=== PATIENT | male | born 1960 | race African-American/Black ===

== ENCOUNTER 2018-07-03 13:45 | Inpatient (IN) ==
[2018-07-03 15:26] LABS: Baso % (Auto) 0.8 % (0.0-2.0); Eos # (Auto) 0.1 th/mm3 (0.0-0.4); Eos % (Auto) 2.5 % (0.0-4.0); Hematocrit 48.1 % (39.0-51.0); Hemoglobin 15.8 gm/dL (13.0-17.0); Lymph # (Auto) 1.4 th/mm3 (1.0-4.8); Lymph % (Auto) 30.8 % (9.0-44.0); Mean Corpuscular HGB Conc 32.9 % (32.0-36.0); Mean Corpuscular Hemoglobin 28.9 pg (27.0-34.0); Mean Corpuscular Volume 87.6 fL (80.0-100.0); Mean Platelet Volume 8.6 fL (7.0-11.0); Mono # (Auto) 0.4 th/mm3 (0.0-0.9); Mono % (Auto) 9.5 % (0.0-8.0); Neut # (Auto) 2.6 th/mm3 (1.8-7.7); Neut % (Auto) 56.4 % (16.0-70.0); Platelet Count 188 th/mm3 (150-450); Red Blood Count 5.49 mil/mm3 (4.50-5.90); Red Cell Distribution Width 13.9 % (11.6-17.2); White Blood Count 4.6 th/mm3 (4.0-11.0)
--- NOTE | 2018-07-03 15:36 | XR ---
EXAM DATE: 07/03/2018 3:33 PM EDT AGE/SEX: 57 years / Male INDICATIONS: High blood pressure. CLINICAL DATA: This is the patient's initial encounter. Patient reports that signs and symptoms have been present for 1 month and indicates a pain score of 1/10. MEDICAL/SURGICAL HISTORY: Hypertension. Congestive heart failure. None. COMPARISON: No prior exams available for comparison. FINDINGS: The cardiac silhouette is enlarged in transverse diameter. The lungs are free of acute parenchymal op acity. No effusions are identified. The aortic knob is prominent with tortuosity of the descending th oracic aorta. CONCLUSION: Cardiomegaly. No acute pulmonary disease. Electronically signed by: Les Giraldo MD 07/03/2018 3:35 PM EDT
[2018-07-03 15:59] LABS: Calcium 9.3 mg/dL (8.5-10.1); Carbon Dioxide 28.1 meq/L (21.0-32.0); Potassium 4.1 meq/L (3.5-5.1)
--- NOTE | 2018-07-03 17:01 | ED ---
HPI General Chief complaint: Medical Clearance Stated complaint: BP high Time Seen by Provider: 07/03/18 14:51 Source: patient Mode of arrival: ambulatory Limitations: no limitations History of Present Illness HPI narrative: Patient is a 57-year-old male with hypertension diabetes seizure disorder and diverticulosis that was sent in by his primary Dr. Gilmore for markedly elevated blood pressure they did give him a prescription for clonidine 0.1 mg p.o. but that was prescribed today. The patient will arrival had a blood pressure of 220/111. However, the patient states he is completely asymptomatic has no chest pain no dizziness no nausea vomiting no headache Related Data Home Medications Medication Instructions Recorded Confirmed clonidine HCl 0.1 mg PO BID 07/03/18 07/03/18 dabigatran etexilate [Pradaxa] 75 mg PO DAILY 07/03/18 07/03/18 hydrochlorothiazide 25 mg PO QAM 07/03/18 07/03/18 metformin 1,000 mg PO BID 07/03/18 07/03/18 metoprolol succinate 100 mg PO BID 07/03/18 07/03/18 sitagliptin [Januvia] 100 mg PO DAILY 07/03/18 07/03/18 Allergies Allergy/AdvReac Type Severity Reaction Status Date / Time No Known Allergies Allergy Verified 07/03/18 15:39 Review of Systems ROS: all other systems reviewed are negative Constitutional Reports system reviewed and no additional complaints, except as docu Cardiovascular Reports system reviewed and no additional complaints, except as docu Respiratory Reports system reviewed and no additional complaints, except as docu Neurologic Reports as per HPI, Denies vertigo, Denies dizziness and Denies headache(s) [facility] Medical History Medical History CVA (cerebral vascular accident) (Acute) Diabetes (Acute) HTN (hypertension) (Acute) High cholesterol (Acute) Surgical History Surgical History H/O hernia repair (Acute) H/O knee surgery (Acute) Social History Social History Substance History: Active Abuse Second Hand Smoke Exposure: No Smoking Status: Never smoker How Often Do You Have a Drink Containing Alcohol: Monthly or less Recent Travel in [facility] within the Last 8 Weeks: No Recent Out of Country Travel within the Last 8 Weeks: No Substance Abuse Detail Marijuana: Substance Use Status: Active Route Used Substance Abuse: Inhalation Immunization History Tetanus Immunization: Unsure Hx Influenza Vaccine This Season: No Exam Narrative Exam Narrative: GENERAL: Alert and oriented in no distress. SKIN: Focused skin assessment warm/dry. HEAD: Atraumatic. Normocephalic. EYES: Pupils equal and round. No scleral icterus. No injection or drainage. ENT: No nasal bleeding or discharge. Mucous membranes pink and moist. NECK: Trachea midline. No JVD. CARDIOVASCULAR: Regular rate and rhythm. No murmur appreciated. RESPIRATORY: No accessory muscle use. Clear to auscultation. Breath sounds equal bilaterally. GASTROINTESTINAL: Abdomen soft, non-tender, nondistended. Hepatic and splenic margins not palpable. MUSCULOSKELETAL: No obvious deformities. No clubbing. No cyanosis. No edema. NEUROLOGICAL: Awake and alert. No obvious cranial nerve deficits. Motor grossly within normal limits. Normal speech. PSYCHIATRIC: Appropriate mood and affect; insight and judgment normal. Course Reevaluation(s) Reevaluation #1: Patient still elevated blood pressure of 217/122 after he received enalapril. Will lead give clonidine 0.2 mg p.o. and reassess. Still asymptomatic Time: 15:30 Reevaluation #2: Minimal improvement of his blood pressure to 203/113 and on repeat was 218/[address] the patient on Cardene drip. Time: 16:45 Reevaluation #3: Blood pressure after he was placed on Cardene drip is 160/96. Time: 18:21 Initial Documented Vital Signs Temperature 98.3 F 07/03/18 14:30 Pulse Rate 77 07/03/18 14:30 Respiratory Rate 16 07/03/18 14:30 Blood Pressure 220/111 H 07/03/18 14:30 Pulse Oximetry 100 07/03/18 14:30 Last Documented Vital Signs Temperature 98.3 F 07/03/18 14:30 Pulse Rate 77 07/03/18 18:00 Respiratory Rate 15 07/03/18 18:00 Blood Pressure 168/96 H 07/03/18 18:00 Pulse Oximetry 98 07/03/18 16:00 Critical Care Time Critical Care Time: Yes Total Critical Care Time: 30 Attestation: Aggregate critical care time was 30 minutes. Time to perform other separately billable procedures was not included in the critical care time. My time did not include minutes spent treating any other patients simultaneously or on activities that did not directly contribute to the patient's treatment. The services I provided to this patient were to treat and/or prevent clinically significant deterioration that could result in: Loss of current lifestyle permanent disability and/or I provided critical care services requiring my management, as noted below: Chart data review, documentation time, medication orders and management, vital sign assessments/reviewing monitor data, ordering and reviewing lab tests, ordering and interpreting/reviewing x-rays and diagnostic studies, care of the patient and discussion of the patient with the admitting physicians. Medical Decision Making MDM Narrative Medical decision making narrative: Patient with persistent hypertension not responding to p.o. clonidine or IV Vasotec. He was placed on a Cardene drip with a repeat blood pressure after being on the drip for about 30 minutes of 168 /96 at 1800 hrs. Patient is otherwise asymptomatic kidney function seems intact. He will be admitted for further monitoring of his vital signs. Medical Screen Exam Complete: Yes Emergency Medical Condition: Yes Medical Records Medical records reviewed: Yes I reviewed the patient's medical records. Lab Data Lab results reviewed: Yes I reviewed the patient's lab results. Result diagrams: 07/03/18 15:10 07/03/18 15:10 Lab Results 07/03/18 07/03/18 07/03/18 Range/Units 15:10 15:10 15:15 WBC 4.6 (4.0-11.0) th/mm3 RBC 5.49 (4.50-5.90) mil/mm3 Hgb 15.8 (13.0-17.0) gm/dL Hct 48.1 (39.0-51.0) % MCV 87.6 (80.0-100.0) fL MCH 28.9 (27.0-34.0) pg MCHC 32.9 (32.0-36.0) % RDW 13.9 (11.6-17.2) % Plt Count 188 (150-450) th/mm3 MPV 8.6 (7.0-11.0) fL Neut % (Auto) 56.4 (16.0-70.0) % Lymph % (Auto) 30.8 (9.0-44.0) % [place] % (Auto) 9.5 H (0.0-8.0) % Eos % (Auto) 2.5 (0.0-4.0) % Baso % (Auto) 0.8 (0.0-2.0) % Neut # (Auto) 2.6 (1.8-7.7) th/mm3 Lymph # (Auto) 1.4 (1.0-4.8) th/mm3 [place] # (Auto) 0.4 (0.0-0.9) th/mm3 Eos # (Auto) 0.1 (0.0-0.4) th/mm3 Baso # (Auto) 0.0 (0.0-0.2) th/mm3 WBC Differential . Differential Comment Auto diff final Sodium 142 (136-145) meq/L Potassium 4.1 (3.5-5.1) meq/L Chloride 106 (98-107) meq/L Carbon Dioxide 28.1 (21.0-32.0) meq/L Anion Gap 8 (5-15) meq/L BUN 14 (7-18) mg/dL Creatinine 1.15 (0.60-1.30) mg/dL Estimated GFR 79 L (>89) mL/min POC Glucose 103 (68-110) mg/dl Random Glucose 95 (74-106) mg/dL Calcium 9.3 (8.5-10.1) mg/dL Imaging Data Radiologist's impression: Chest X-Ray 07/03/18 14:52 CONCLUSION: Cardiomegaly. No acute pulmonary disease. ECG Data Attestation: I personally reviewed and interpreted this ECG as follows: Interpretation: Sinus rhythm 78 bpm, left atrial enlargement OH interval [address]-T wave abnormalities normal axis. No STEMI Discharge Plan Discharge Disposition Patient Disposition: 30 Still Patient Discharge Condition Condition: Good Discharge Details Diagnosis: Asymptomatic hypertensive urgency Physicians Team ED Provider: Dandy Barrera Primary Care Provider: UNKNOWN, Attending Provider: Rodrigo Gregg Discharge Interventions Interventions: Vital Signs Last Done: 07/03/18 18:00 Status ED Status: Admitted Patient
[2018-07-03] MEDS: niCARdipine Inj 25 MG in Sodium Chlor 0.9% Inj 240 ML IV.CONT PRN (17:21)
[2018-07-03] MEDS ORDERED: Dextrose 50% in Water 50 ML Vial IV.PUSH PRN (18:29)
--- NOTE | 2018-07-03 22:00 | P.HPIM ---
History of Present Illness Service: [facility] . Primary Care Physician: UNKNOWN Chief Complaint: High blood pressure History of Present Illness: Mr. Acosta is a 57-year-old male with a history of CVA, diabetes mellitus, hyperlipidemia, hypertension, seizure disorder, and diverticulosis who was sent by his primary care physician Dr. Bell to the emergency room for evaluation of hypertensive urgency. He was found to have an initial blood pressure of 220/ 110 in the emergency room, was started on a Cardene drip, and admitted to [facility] service for medical management and evaluation. The patient is seen in the critical care unit with Cardene drip infusing. He denies any headaches, unilateral weakness, chest pain, palpitations shortness of breath, nausea, vomiting, diarrhea, fevers, chills. He states he was simply at the doctor for routine follow-up when they noted his elevated blood pressure and referred him to the emergency department. He reports having elevated blood pressure over the last year. He reports seeing Dr. Arias for chronic back pain which is treated with Roxicodone and "muscle relaxers" as an outpatient. I attempted to review his medications with him, but he is uncertain as to which medications he takes exactly. I have discussed with the bedside nurse and the medication reconciliation will be corrected in the morning. Inpatient Certification: I certify that the inpatient services were ordered in accordance with Medicare regulations governing the order. This includes certification that hospital inpatient services are reasonable and necessary and in the case of services not specified as inpatient-only under 42 CFR 419.22(n), that they are appropriately provided as inpatient services in accordance to with the 2-midnight benchmark under 43 CFR 412.3(e) Estimated Total Length of Stay (Days): 2 Plans for Post Hospital Care: Not yet determined Review of Systems All other systems reviewed negative except as [facility] - History History Provided By: Patient, Medical Record - Medical History Medical History: Medical History (Last Updated 07/04/18 @ 00:34 by ADRIAN Garcia) CVA (cerebral vascular accident) Diabetes HTN (hypertension) - Surgical History Surgical History: Surgical History (Last Updated 07/04/18 @ 00:34 by ADRIAN Garcia) H/O hernia repair H/O knee surgery History of skin graft - Family History Family History: Family History (Last Updated 07/04/18 @ 00:36 by ADRIAN Garcia) Mother Breast cancer Brother CVA (cerebral vascular accident) - Tobacco History Second Hand Smoke Exposure: No Tobacco Use In Past 30 Days: No Smoking Status: Never smoker - Alcohol History How Often Do You Have a Drink Containing Alcohol: Monthly or less - Substance Use History Substance History: Active Abuse - Substance Use Type Marijuana Status: Active Route Used: Inhalation - Travel History Recent Travel in the [place] Within the Last 8 Weeks: No Recent Travel Out of the Country Within the Last 8 Weeks: No - Immunization History Tetanus Immunization: Unsure Hx Influenza Vaccine This Season: No Medications and Allergies Active Medications: Active Medications Acetaminophen (Tylenol) 650 mg PO Q4H PRN PRN Reason: Temp > 100.4 Clonidine HCl (Catapres) 0.1 mg PO BID RITO Dabigatran (Pradaxa) 75 mg PO DAILY RITO Dextrose (D50w Vial) 50 ml IV.PUSH UNSCH PRN PRN Reason: PER HYPOGLYCEMIA PROTOCOL Glucagon (Glucagon Inj) 1 mg OTHER PRN PRN PRN Reason: for Hypoglycemia Protocol Hydrochlorothiazide (Hydrodiuril) 25 mg PO DAILY RITO Nicardipine HCl 25 mg/ Sodium (Chloride) 250 mls @ 50 mls/hr IV.CONT TITRATE PRN; Protocol PRN Reason: Per Protocol Last Titration: 07/03/18 21:50 Dose: 5 mg/hr, 50 mls/hr Insulin Aspart (Novolog Insulin Correctional Sugar Inj) 0 unit SQ ACHS RITO; Protocol Metoprolol Succinate (Toprol Xl) 100 mg PO BID RITO Allergies Allergy/AdvReac Type Severity Reaction Status Date / Time No Known Allergies Allergy Verified 07/03/18 15:39 Home Medications Medication Instructions Recorded Confirmed Type clonidine HCl 0.1 mg PO BID 07/03/18 07/03/18 History dabigatran etexilate [Pradaxa] 75 mg PO DAILY 07/03/18 07/03/18 History hydrochlorothiazide 25 mg PO QAM 07/03/18 07/03/18 History metformin 1,000 mg PO BID 07/03/18 07/03/18 History metoprolol succinate 100 mg PO BID 07/03/18 07/03/18 History sitagliptin [Januvia] 100 mg PO DAILY 07/03/18 07/03/18 History Exam Vital signs: Vital Signs 07/03/18 14:30 07/03/18 14:49 07/03/18 14:52 Temperature 98.3 F Pulse Rate 77 78 80 Respiratory Rate 16 24 22 Blood Pressure 220/111 H 219/106 H 216/115 H Pulse Oximetry 100 100 100 07/03/18 15:30 07/03/18 16:00 07/03/18 17:15 Temperature Pulse Rate 76 74 73 Respiratory Rate 18 21 Blood Pressure 217/122 H 203/113 H 218/127 H Pulse Oximetry 100 98 07/03/18 17:55 07/03/18 18:00 Temperature Pulse Rate 164 H 77 Respiratory Rate 15 Blood Pressure 164/106 H 168/96 H Pulse Oximetry Intake & Output 07/03/18 07/03/18 07/04/18 06:59 18:59 06:59 Weight 90.718 kg Narrative: GENERAL: This is an overweight older male patient, in no apparent distress. SKIN: No rashes, ecchymoses or lesions. Cool and dry. HEAD: Atraumatic. Normocephalic. EYES: No scleral icterus. No injection or drainage. ENT: Nose without bleeding, purulent drainage. NECK: Trachea midline. No JVD. CARDIOVASCULAR: Regular rate and rhythm without murmurs, gallops, or rubs. RESPIRATORY: Clear to auscultation. Breath sounds equal bilaterally. No wheezes , rales, or rhonchi. GASTROINTESTINAL: Abdomen soft, non-tender, nondistended. No guarding. MUSCULOSKELETAL: Extremities without clubbing, cyanosis, or edema. No calf tenderness. NEUROLOGICAL: Awake and alert. Motor and sensory grossly within normal limits. Normal speech. . Results - Labs CBC & Chem 7: 07/03/18 15:10 07/03/18 15:10 Labs: Short CBC 07/03/18 Range/Units 15:10 WBC 4.6 (4.0-11.0) th/mm3 Hgb 15.8 (13.0-17.0) gm/dL Hct 48.1 (39.0-51.0) % Plt Count 188 (150-450) th/mm3 BMP 07/03/18 15:10 Sodium 142 Potassium 4.1 Chloride 106 Carbon Dioxide 28.1 BUN 14 Creatinine 1.15 Calcium 9.3 Cardiac Enzymes 07/03/18 Range/Units 15:10 Troponin I Less than 0.02 L (0.02-0.05) ng/mL - Imaging Impressions Chest X-Ray 07/03/18 14:52 CONCLUSION: Cardiomegaly. No acute pulmonary disease. Caprini VTE Risk Assessment Caprini VTE Risk Assessment: Moderate/High Risk (score >= 2) Caprini Risk Assessment Model: Point Value = 1 Point Value = 2 Point Value = 3 Point Value = 5 Age 41-60 Minor surgery BMI > 25 kg/m2 Swollen legs Varicose veins or History of unexplained or recurrent spontaneous Oral contraceptives or hormone replacement Sepsis (< 1 month) Serious lung disease, including pneumonia (< 1 month) Abnormal pulmonary function Acute myocardial infarction Congestive heart failure (< 1 month) History of inflammatory bowel disease Medical patient at bed rest Age 61-74 Arthroscopic surgery Major open surgery (> 45 min) Laparoscopic surgery (> 45 min) Malignancy Confined to bed (> 72 hours) Immobilizing plaster cast Central venous access Age >= 75 History of VTE Family history of VTE Factor V Leiden Prothrombin [id number] Lupus anticoagulant Anticardiolipin antibodies Elevated serum homocysteine Heparin-induced thrombocytopenia Other congenital or acquired thrombophilia Stroke (< 1 month) Elective arthroplasty Hip, pelvis, or leg fracture Acute spinal cord injury (< 1 month) Prophylaxis Regimen: Total Risk Factor Score Risk Level Prophylaxis Regimen 0-1 Low Early ambulation 2 Moderate Order ONE of the following: *Sequential Compression Device (SCD) *Heparin 5000 units SQ BID 3-4 Higher Order ONE of the following medications: *Heparin 5000 units SQ TID *Enoxaparin/Lovenox 40 mg SQ daily (WT < 150 kg, CrCl > 30 mL/min) *Enoxaparin/Lovenox 30 mg SQ daily (WT < 150 kg, CrCl > 10-29 mL/min) *Enoxaparin/Lovenox 30 mg SQ BID (WT < 150 kg, CrCl > 30 mL/min) AND/OR *Sequential Compression Device (SCD) 5 or more Highest Order ONE of the following medications: *Heparin 5000 units SQ TID (Preferred with Epidurals) *Enoxaparin/Lovenox 40 mg SQ daily (WT < 150 kg, CrCl > 30 mL/min) *Enoxaparin/Lovenox 30 mg SQ daily (WT < 150 kg, CrCl > 10-29 mL/min) *Enoxaparin/Lovenox 30 mg SQ BID (WT < 150 kg, CrCl > 30 mL/min) AND *Sequential Compression Device (SCD) Assessment and Plan - Plan Mr. Acosta is a 57-year-old male with a history of CVA, diabetes mellitus, hyperlipidemia, hypertension, seizure disorder, and diverticulosis who was sent by his primary care physician Dr. Bell to the emergency room for evaluation of hypertensive urgency. He was found to have an initial blood pressure of 220/ 110 in the emergency room, was started on a Cardene drip, and [facility] and [facility]. Hypertensive urgency - Blood pressure currently controlled on Cardene drip - Start Procardia 30 mg XL p.o. daily - wean off cardene drip - monitor trends in bp and adjust treatments accordingly Type 2 Diabetes Mellitus - Holding home meds for now -patient unsure of what he takes at home - Accu-Cheks before meals and at bedtime with low-dose NovoLog sliding scale coverage - PRN Hypoglycemia protocol - Monitor trends and blood glucose readings and adjust treatments as indicated Patient unsure of what medications he takes -will need med rec corrected/ verified DVT prophylaxis - ?Pradaxa? - will need anticoagulation verified with either patient's pharmacy or PCP - discussed with bedside RN - SCDs pending verification of home medications Discussed Condition With: Dr. Forte, bedside RN, and patient
[2018-07-03] MEDS: hydroCHLOROthiazide 25 MG Tablet PO SCH ×2 (22:35→23:44)
[2018-07-03] MEDS: Acetaminophen 325 MG Tablet PO PRN (22:35)
[2018-07-03] MEDS ORDERED: Temazepam 15 MG Capsule PO ONE (23:19)
[2018-07-04] MEDS: Insulin NovoLOG Aspart Correctional Sugar Inj SQ SCH ×5 (00:01→21:08)
[2018-07-04] MEDS: niCARdipine Inj 25 MG in Sodium Chlor 0.9% Inj 240 ML IV.CONT PRN ×2 (00:20→22:48)
[2018-07-04 06:09] LABS: Baso % (Auto) 0.4 % (0.0-2.0); Eos # (Auto) 0.2 th/mm3 (0.0-0.4); Eos % (Auto) 3.9 % (0.0-4.0); Hematocrit 46.8 % (39.0-51.0); Hemoglobin 15.7 gm/dL (13.0-17.0); Lymph # (Auto) 2.3 th/mm3 (1.0-4.8); Mean Corpuscular HGB Conc 33.5 % (32.0-36.0); Mean Corpuscular Hemoglobin 29.1 pg (27.0-34.0); Mean Corpuscular Volume 86.8 fL (80.0-100.0); Mean Platelet Volume 8.6 fL (7.0-11.0); Mono # (Auto) 0.3 th/mm3 (0.0-0.9); Mono % (Auto) 7.9 % (0.0-8.0); Neut # (Auto) 1.6 th/mm3 (1.8-7.7); Neut % (Auto) 35.8 % (16.0-70.0); Platelet Count 173 th/mm3 (150-450); Red Blood Count 5.39 mil/mm3 (4.50-5.90); Red Cell Distribution Width 13.6 % (11.6-17.2); White Blood Count 4.4 th/mm3 (4.0-11.0)
[2018-07-04 06:49] LABS: Alanine Aminotransferase 15 U/L (12-78); Albumin 3.4 g/dL (3.4-5.0); Alkaline Phosphatase 72 U/L (45-117); Anion Gap 7 meq/L (5-15); Aspartate Aminotransferase 21 U/L (15-37); Blood Urea Nitrogen 12 mg/dL (7-18); Calcium 9.1 mg/dL (8.5-10.1); Carbon Dioxide 28.7 meq/L (21.0-32.0); Chloride 104 meq/L (98-107); Glomerular Filtration Rate Greater Than 89 mL/min (>89); Glucose,Random 113 mg/dL (74-106); Potassium 3.1 meq/L (3.5-5.1); Sodium 140 meq/L (136-145); Total Protein 7.3 g/dL (6.4-8.2)
--- NOTE | 2018-07-04 08:41 | P.PNIM ---
Subjective Interval history: f/u; hypertensive urgency in no acute distress and looks comfortable. denies chest pain, sob, dizziness. off the Cardene drip since 4 this morning. d/w the RN and no other acute issues over night. Physical Exam Vital signs: Vital Signs 07/03/18 14:30 07/03/18 14:49 07/03/18 14:52 Temperature 98.3 F Pulse Rate 77 78 80 Respiratory Rate 16 24 22 Blood Pressure 220/111 H 219/106 H 216/115 H Pulse Oximetry 100 100 100 07/03/18 15:30 07/03/18 16:00 07/03/18 17:15 Temperature Pulse Rate 76 74 73 Respiratory Rate 18 21 Blood Pressure 217/122 H 203/113 H 218/127 H Pulse Oximetry 100 98 07/03/18 17:55 07/03/18 18:00 07/03/18 20:00 Temperature Pulse Rate 164 H 77 68 Respiratory Rate 15 Blood Pressure 164/106 H 168/96 H Pulse Oximetry 07/04/18 00:00 07/04/18 00:01 07/04/18 01:25 Temperature 98.1 F Pulse Rate 68 Respiratory Rate 18 19 20 Blood Pressure 158/92 H Pulse Oximetry 98 07/04/18 04:00 Temperature 98.5 F Pulse Rate 61 Respiratory Rate 11 L Blood Pressure 138/71 Pulse Oximetry 94 L Intake & Output 07/03/18 07/04/18 07/04/18 18:59 06:59 18:59 Intake Total 350 / 350 Output Total 700 / 700 Balance -350 / -350 Weight 90.718 kg 90 kg Intake: IV 250 / 250 Cardene Inj 25 MG In NS Inj 240 250 / 250 ML @ 5 MG/HR 50 mls/hr IV.CONT TITRATE PRN Rx#:[id number] Oral 100 / 100 Output: Urine 700 / 700 Other: Date of Last Bowel Movement 07/03/18 Weight On Admission 90.7 kg - Constitutional no acute distress - Routine Respiratory Exam Present: CTA bilaterally - Routine Cardiovascular Exam Present: RRR - Routine Abdominal Exam Present: soft - Routine Extremities Exam Comments: no pedal edema. - Routine Neurological Exam Present: alert, oriented X3 Results - Labs CBC & Chem 7: 07/04/18 05:12 07/04/18 05:12 Laboratory Results - last 24 hr 07/03/18 07/03/1807/03/18 15:10 15:10 15:10 WBC 4.6 RBC 5.49 Hgb 15.8 Hct 48.1 MCV 87.6 MCH 28.9 MCHC 32.9 RDW 13.9 Plt Count 188 MPV 8.6 Neut % (Auto) 56.4 Lymph % (Auto) 30.8 [place] % (Auto) 9.5 H Eos % (Auto) 2.5 Baso % (Auto) 0.8 Neut # (Auto) 2.6 Lymph # (Auto) 1.4 [place] # (Auto) 0.4 Eos # (Auto) 0.1 Baso # (Auto) 0.0 WBC Differential . Differential Comment Auto diff final Sodium 142 Potassium 4.1 Chloride 106 Carbon Dioxide 28.1 Anion Gap 8 BUN 14 Creatinine 1.15 Estimated GFR 79 L POC Glucose Random Glucose 95 Calcium 9.3 Total Bilirubin AST ALT Alkaline Phosphatase Troponin I Less than 0.02 L Total Protein Albumin Nasal Screen MRSA (PCR) 07/03/18 07/03/18 07/04/18 15:15 23:50 00:01 WBC RBC Hgb Hct MCV MCH MCHC RDW Plt Count MPV Neut % (Auto) Lymph % (Auto) [place] % (Auto) Eos % (Auto) Baso % (Auto) Neut # (Auto) Lymph # (Auto) [place] # (Auto) Eos # (Auto) Baso # (Auto) WBC Differential Differential Comment Sodium Potassium Chloride Carbon Dioxide Anion Gap BUN Creatinine Estimated GFR POC Glucose 103 114 H Random Glucose Calcium Total Bilirubin AST ALT Alkaline Phosphatase Troponin I Total Protein Albumin Nasal Screen MRSA (PCR) Not detected 07/04/18 07/04/18 07/04/18 05:12 05:12 07:31 WBC 4.4 RBC 5.39 Hgb 15.7 Hct 46.8 MCV 86.8 MCH 29.1 MCHC 33.5 RDW 13.6 Plt Count 173 MPV 8.6 Neut % (Auto) 35.8 Lymph % (Auto) 52.0 H [place] % (Auto) 7.9 Eos % (Auto) 3.9 Baso % (Auto) 0.4 Neut # (Auto) 1.6 L Lymph # (Auto) 2.3 [place] # (Auto) 0.3 Eos # (Auto) 0.2 Baso # (Auto) 0.0 WBC Differential . Differential Comment Auto diff final Sodium 140 Potassium 3.1 L D Chloride 104 Carbon Dioxide 28.7 Anion Gap 7 BUN 12 Creatinine 1.02 Estimated GFR Greater than 89 POC Glucose 118 H Random Glucose 113 H Calcium 9.1 Total Bilirubin 0.7 AST 21 ALT 15 Alkaline Phosphatase 72 Troponin I Less than 0.02 L Total Protein 7.3 Albumin 3.4 Nasal Screen MRSA (PCR) - Imaging Impressions Chest X-Ray 07/03/18 14:52 CONCLUSION: Cardiomegaly. No acute pulmonary disease. Assessment and Plan - Plan Hypertensive urgency -improved and now off the Cardene drip - Started Procardia 30 mg XL p.o. daily -continue HCTZ -hold metoprolol and clonidine for now. - monitor trends in bp and adjust treatments accordingly Type 2 Diabetes Mellitus - Holding home meds for now - - Accu-Cheks before meals and at bedtime with low-dose NovoLog sliding scale coverage - PRN Hypoglycemia protocol - Monitor trends and blood glucose readings and adjust treatments as indicated history of CVA- continue Pradaxa Hypokalemia; will replace and monitor. DVT prophylaxis; on Pradaxa transfer to floor this evening if BP stable. Discharge Planning: dc home tomorrow if BP stable.
[2018-07-04] MEDS: hydroCHLOROthiazide 25 MG Tablet PO SCH (08:50)
--- NOTE | 2018-07-04 14:38 | ECG ---
Date Performed: 07/03/2018 Time Performed: 15:09:47 PTAGE: 57 years EKG: Sinus rhythm POSSIBLE LEFT ATRIAL ENLARGEMENT NONSPECIFIC T-WAVE ABNORMALITY ANTEROSEPTAL ST ELEVATION CLINICAL C ORRELATION WILL BE USEFUL BORDERLINE ECG Since PREVIOUS TRACING , no significant change noted PREVIOUS TRACIN07/03/2018 15.09 DOCTOR: Florinda You Interpretating Date/Time 07/04/2018 14:36:31
[2018-07-04] MEDS ORDERED: Temazepam 15 MG Capsule PO ONE (21:00)
[2018-07-05] MEDS: niCARdipine Inj 25 MG in Sodium Chlor 0.9% Inj 240 ML IV.CONT PRN (01:57)
[2018-07-05 06:40] LABS: Anion Gap 12 meq/L (5-15); Blood Urea Nitrogen 13 mg/dL (7-18); Carbon Dioxide 26.2 meq/L (21.0-32.0); Chloride 103 meq/L (98-107); Glomerular Filtration Rate Greater Than 89 mL/min (>89); Glucose,Random 116 mg/dL (74-106); Sodium 141 meq/L (136-145)
[2018-07-05 06:43] LABS: Potassium 3.7 meq/L (3.5-5.1)
--- NOTE | 2018-07-05 07:57 | P.PNIM ---
Subjective Interval history: f/u; hypertensive urgency in no acute distress. with no chest pain, sob. is back on Cardene drip- started earlier this morning. d/w the RN. Physical Exam Vital signs: Vital Signs 07/04/18 08:00 07/04/18 08:02 07/04/18 08:30 Temperature 98.4 F Pulse Rate 64 68 68 Respiratory Rate 14 18 29 H Blood Pressure 160/101 H 153/83 H 164/101 H Pulse Oximetry 98 98 99 07/04/18 09:00 07/04/18 09:06 07/04/18 09:35 Temperature Pulse Rate 71 67 67 Respiratory Rate 42 H 18 16 Blood Pressure 188/106 H 137/75 Pulse Oximetry 97 97 97 07/04/18 10:00 07/04/18 10:01 07/04/18 10:14 Temperature Pulse Rate 70 75 71 Respiratory Rate 25 H 34 H 16 Blood Pressure 179/107 H 175/92 H Pulse Oximetry 99 95 98 07/04/18 11:00 07/04/18 12:00 07/04/18 13:00 Temperature 98.2 F Pulse Rate 61 66 63 Respiratory Rate 15 20 11 L Blood Pressure 160/85 H 139/70 167/101 H Pulse Oximetry 100 96 98 07/04/18 14:00 07/04/18 14:28 07/04/18 15:00 Temperature Pulse Rate 71 71 70 Respiratory Rate 18 16 15 Blood Pressure 183/95 H 178/96 H 178/89 H Pulse Oximetry 96 98 98 07/04/18 16:00 07/04/18 17:00 07/04/18 17:11 Temperature 98.4 F Pulse Rate 67 69 69 Respiratory Rate 15 25 H 19 Blood Pressure 153/67 H 194/90 H 172/74 H Pulse Oximetry 98 99 100 07/04/18 18:00 07/04/18 19:00 07/04/18 19:20 Temperature 97.8 F Pulse Rate 70 72 Respiratory Rate 22 22 Blood Pressure 170/95 H 181/104 H 191/102 H Pulse Oximetry 100 100 07/04/18 19:26 07/04/18 20:00 07/04/18 20:30 Temperature Pulse Rate 71 79 Respiratory Rate 19 16 Blood Pressure 188/110 H 184/105 H 183/90 H Pulse Oximetry 99 99 07/04/18 20:45 07/04/18 21:00 07/04/18 21:15 Temperature Pulse Rate 75 82 79 Respiratory Rate 20 33 H 24 Blood Pressure 179/90 H 184/91 H 173/86 H Pulse Oximetry 97 99 97 07/04/18 21:32 07/04/18 22:00 07/04/18 23:00 Temperature Pulse Rate 78 80 74 Respiratory Rate 20 25 H 17 Blood Pressure 172/104 H Pulse Oximetry 97 98 97 07/05/18 00:00 07/05/18 00:25 07/05/18 00:30 Temperature 97.8 F Pulse Rate 62 71 64 Respiratory Rate 18 18 Blood Pressure 177/91 H 177/91 H 153/83 H Pulse Oximetry 93 L 94 L 98 07/05/18 00:45 07/05/18 01:00 07/05/18 01:15 Temperature Pulse Rate 63 66 65 Respiratory Rate 17 18 15 Blood Pressure 142/75 H 134/69 123/64 Pulse Oximetry 99 94 L 93 L 07/05/18 01:30 07/05/18 01:45 07/05/18 02:00 Temperature Pulse Rate 66 66 66 Respiratory Rate 13 13 12 Blood Pressure 157/77 H 149/83 H 154/90 H Pulse Oximetry 97 99 97 07/05/18 02:15 07/05/18 02:30 07/05/18 02:45 Temperature Pulse Rate 66 65 64 Respiratory Rate 20 18 18 Blood Pressure 148/84 H 142/80 H 150/84 H Pulse Oximetry 96 95 95 07/05/18 03:00 07/05/18 03:15 07/05/18 03:30 Temperature Pulse Rate 64 66 65 Respiratory Rate 17 18 16 Blood Pressure 146/79 H 138/86 141/77 H Pulse Oximetry 95 95 97 07/05/18 03:45 07/05/18 04:00 07/05/18 04:15 Temperature 98 F Pulse Rate 65 71 76 Respiratory Rate 16 16 22 Blood Pressure 140/81 154/86 H 154/87 H Pulse Oximetry 96 92 L 96 07/05/18 04:30 07/05/18 04:45 Temperature Pulse Rate 67 69 Respiratory Rate 13 15 Blood Pressure 148/81 H 151/92 H Pulse Oximetry 95 93 L Intake & Output 07/04/18 07/05/18 07/05/18 18:59 06:59 18:59 Intake Total 750 / 750 1253 / 1253 Output Total 1850 / 1850 1350 / 1350 Balance -1100 / -1100 -97 / -97 Weight 88 kg Intake: IV 500 / 500 Cardene Inj 25 MG In NS Inj 240 500 / 500 ML @ 5 MG/HR 50 mls/hr IV.CONT TITRATE PRN Rx#:[id number] Oral 750 / 750 550 / 550 Other 203 / Output: Urine 1850 / 1850 1350 / 1350 Other: Date of Last Bowel Movement 07/04/18 07/05/18 # Bowel Movements 1 1 - Constitutional no acute distress - Routine Respiratory Exam Present: CTA bilaterally - Routine Cardiovascular Exam Present: RRR - Routine Abdominal Exam Present: soft - Routine Extremities Exam Comments: no pedal edema. - Routine Neurological Exam Present: alert, oriented X3 Results - Labs CBC & Chem 7: 07/04/18 05:12 07/05/18 05:44 Laboratory Results - last 24 hr 07/04/18 07/04/18 07/04/18 11:15 17:12 21:06 Sodium Potassium Chloride Carbon Dioxide Anion Gap BUN Creatinine Estimated GFR POC Glucose 149 H 162 H 139 H Random Glucose Calcium 07/05/18 07/05/18 05:44 05:50 Sodium 141 Potassium 3.7 Chloride 103 Carbon Dioxide 26.2 Anion Gap 12 BUN 13 Creatinine 0.96 Estimated GFR Greater than 89 POC Glucose 115 H Random Glucose 116 H Calcium 9.0 Assessment and Plan - Plan Hypertensive urgency -now back on Cardene drip- started earlier this morning. - will increase Procardia to 60 mg XL p.o. daily -continue HCTZ -hold metoprolol and clonidine for now. - monitor trends in bp and adjust treatments accordingly Type 2 Diabetes Mellitus - Holding home meds for now - - Accu-Cheks before meals and at bedtime with low-dose NovoLog sliding scale coverage - PRN Hypoglycemia protocol - Monitor trends and blood glucose readings and adjust treatments as indicated history of CVA- continue Pradaxa Hypokalemia; replaced. DVT prophylaxis; on Pradaxa back on Cardene drip- Discharge Planning: when BP is controlled.
[2018-07-05] MEDS: hydroCHLOROthiazide 25 MG Tablet PO SCH (09:28)
[2018-07-05] MEDS: Insulin NovoLOG Aspart Correctional Sugar Inj SQ SCH ×4 (09:28→20:19)
[2018-07-06] MEDS: Acetaminophen 325 MG Tablet PO PRN (02:34)
[2018-07-06] MEDS ORDERED: Docusate Sodium 100 MG Capsule PO PRN (08:26)
[2018-07-06] MEDS ORDERED: Zolpidem Tartrate 5 MG Tablet PO PRN (08:26)
--- NOTE | 2018-07-06 08:30 | P.PNIM ---
Subjective Interval history: f/u; uncontrolled hypertension in no acute distress. no chest pain, sob, dizziness or headache. noted that had a fever- but as per my d/w the RN, this was an inaccurate charting. Physical Exam Vital signs: Vital Signs 07/05/18 08:30 07/05/18 08:45 07/05/18 09:00 Temperature Pulse Rate 82 76 84 Respiratory Rate 17 16 22 Blood Pressure 160/81 H 164/81 H 163/82 H Pulse Oximetry 98 97 98 07/05/18 09:15 07/05/18 09:30 07/05/18 12:00 Temperature Pulse Rate 83 84 83 Respiratory Rate 19 28 H 18 Blood Pressure 167/93 H 171/89 H 174/99 H Pulse Oximetry 98 98 97 07/05/18 12:15 07/05/18 12:30 07/05/18 12:42 Temperature 99.9 F H Pulse Rate 90 89 86 Respiratory Rate 22 16 24 Blood Pressure 163/78 H 188/88 H 181/91 H Pulse Oximetry 97 98 98 07/05/18 12:45 07/05/18 13:00 07/05/18 13:15 Temperature Pulse Rate 92 H 87 86 Respiratory Rate 40 H 18 22 Blood Pressure 180/93 H 167/84 H 159/81 H Pulse Oximetry 92 L 95 97 07/05/18 13:30 07/05/18 13:43 07/05/18 13:45 Temperature Pulse Rate 86 81 87 Respiratory Rate 13 4 L 39 H Blood Pressure 197/98 H 177/89 H 170/87 H Pulse Oximetry 95 96 96 07/05/18 14:00 07/05/18 14:15 07/05/18 14:30 Temperature Pulse Rate 90 82 113 H Respiratory Rate 25 H 16 24 Blood Pressure 175/90 H 165/79 H 176/88 H Pulse Oximetry 97 97 97 07/05/18 14:45 07/05/18 15:00 07/05/18 15:15 Temperature Pulse Rate 94 H 97 H 92 H Respiratory Rate 18 20 11 L Blood Pressure 180/96 H 174/87 H 178/93 H Pulse Oximetry 97 95 97 07/05/18 15:30 07/05/18 15:41 07/05/18 15:45 Temperature Pulse Rate 93 H 95 H 91 H Respiratory Rate 17 25 H 13 Blood Pressure 190/92 H 196/87 H 180/78 H Pulse Oximetry 96 97 97 07/05/18 15:53 07/05/18 16:00 07/05/18 16:15 Temperature 101 F H Pulse Rate 87 87 83 Respiratory Rate 13 13 12 Blood Pressure 165/74 H 164/78 H 169/88 H Pulse Oximetry 97 97 97 07/05/18 16:30 07/05/18 16:45 07/05/18 17:00 Temperature Pulse Rate 84 83 84 Respiratory Rate 18 12 23 Blood Pressure 163/75 H 156/82 H 142/90 H Pulse Oximetry 95 94 L 95 07/05/18 17:15 07/05/18 17:30 07/05/18 17:45 Temperature Pulse Rate 93 H 93 H 83 Respiratory Rate 25 H 19 17 Blood Pressure 157/95 H 179/96 H 167/86 H Pulse Oximetry 98 96 98 07/05/18 18:00 07/05/18 18:15 07/05/18 18:30 Temperature Pulse Rate 81 85 86 Respiratory Rate 15 16 18 Blood Pressure 158/87 H 173/99 H 177/84 H Pulse Oximetry 96 99 98 07/05/18 18:45 07/05/18 19:00 07/05/18 19:15 Temperature Pulse Rate 85 86 84 Respiratory Rate 17 19 17 Blood Pressure 171/79 H 169/87 H 151/60 H Pulse Oximetry 98 97 93 L 07/05/18 19:30 07/05/18 19:45 07/05/18 20:00 Temperature 97.4 F L Pulse Rate 85 82 83 Respiratory Rate 19 19 26 H Blood Pressure 179/87 H 169/85 H 182/87 H Pulse Oximetry 98 96 97 07/05/18 20:16 07/05/18 20:30 07/05/18 20:45 Temperature Pulse Rate 93 H 90 85 Respiratory Rate 24 35 H 17 Blood Pressure 170/92 H 191/98 H 180/85 H Pulse Oximetry 95 98 97 07/05/18 21:00 07/05/18 21:15 07/05/18 21:30 Temperature Pulse Rate 95 H 85 86 Respiratory Rate 24 15 13 Blood Pressure 197/87 H 189/88 H 188/87 H Pulse Oximetry 98 96 96 07/05/18 21:45 07/05/18 22:00 07/05/18 22:13 Temperature Pulse Rate 84 83 85 Respiratory Rate 12 3 L 29 H Blood Pressure 185/91 H 180/75 H 174/90 H Pulse Oximetry 96 93 L 96 07/05/18 22:15 07/05/18 22:30 07/05/18 22:45 Temperature Pulse Rate 89 82 80 Respiratory Rate 23 11 L 20 Blood Pressure 172/95 H 173/97 H 166/91 H Pulse Oximetry 94 L 96 95 07/05/18 23:00 07/05/18 23:15 07/05/18 23:30 Temperature Pulse Rate 86 92 H 90 Respiratory Rate 27 H 27 H 20 Blood Pressure 162/92 H 155/104 H 199/108 H Pulse Oximetry 97 96 94 L 07/05/18 23:33 07/05/18 23:45 07/06/18 00:00 Temperature Pulse Rate 88 82 82 Respiratory Rate 30 H 17 9 L Blood Pressure 184/99 H 169/89 H 161/86 H Pulse Oximetry 97 96 93 L 07/06/18 00:16 07/06/18 00:30 07/06/18 00:45 Temperature Pulse Rate 87 82 76 Respiratory Rate 20 19 15 Blood Pressure 156/87 H 169/96 H 150/83 H Pulse Oximetry 96 95 94 L 07/06/18 01:00 07/06/18 01:15 07/06/18 01:30 Temperature Pulse Rate 80 74 75 Respiratory Rate 9 L 12 15 Blood Pressure 162/92 H 170/89 H 157/83 H Pulse Oximetry 92 L 96 94 L 07/06/18 01:45 07/06/18 02:00 07/06/18 02:15 Temperature Pulse Rate 76 75 78 Respiratory Rate 26 H 17 14 Blood Pressure 160/84 H 147/74 H 151/78 H Pulse Oximetry 95 96 95 07/06/18 02:30 07/06/18 02:33 07/06/18 02:51 Temperature Pulse Rate 82 89 85 Respiratory Rate 18 32 H 18 Blood Pressure 182/99 H 173/89 H 181/101 H Pulse Oximetry 94 L 97 96 07/06/18 02:52 07/06/18 03:00 07/06/18 03:34 Temperature Pulse Rate 86 76 87 Respiratory Rate 32 H 10 L 29 H Blood Pressure 167/96 H 154/78 H Pulse Oximetry 97 100 07/06/18 04:00 07/06/18 04:41 Temperature Pulse Rate 75 73 Respiratory Rate 11 L 11 L Blood Pressure 176/92 H Pulse Oximetry 94 L 100 Intake & Output 07/05/18 07/06/18 07/06/18 18:59 06:59 18:59 Intake Total 1150 / 1150 500 / 500 Output Total 1100 / 1100 700 / 700 Balance 50 / 50 -200 / -200 Weight 86 kg Intake: IV 250 / 250 Cardene Inj 25 MG In NS Inj 240 250 / 250 ML @ 5 MG/HR 50 mls/hr IV.CONT TITRATE PRN Rx#:[id number] Oral 900 / 900 500 / 500 Output: Urine 1100 / 1100 700 / 700 Other: Date of Last Bowel Movement 07/04/18 07/04/18 - Constitutional no acute distress - Routine Respiratory Exam Present: CTA bilaterally - Routine Cardiovascular Exam Present: RRR - Routine Abdominal Exam Present: soft - Routine Extremities Exam Comments: no pedal edema. - Routine Neurological Exam Present: alert, oriented X3 Results - Labs CBC & Chem 7: 07/04/18 05:12 07/05/18 05:44 Laboratory Results - last 24 hr 07/05/18 07/05/18 17:28 20:10 POC Glucose 149 H 119 H Assessment and Plan - Plan Hypertensive urgency -off Cardene drip since yesterday. - continue procardia and Clonidine- metoprolol on hold for now. -continue HCTZ - monitor trends in bp and adjust treatments accordingly Type 2 Diabetes Mellitus - Holding home meds for now - - Accu-Cheks before meals and at bedtime with low-dose NovoLog sliding scale coverage - PRN Hypoglycemia protocol - Monitor trends and blood glucose readings and adjust treatments as indicated history of CVA- continue Pradaxa and BP control. Hypokalemia; replaced. DVT prophylaxis; on Pradaxa of note; a temperature of 101 was recorded last night but as per my d/w the RN , this was an erroneous charting. transfer to floor. Discharge Planning: dc home tomorrow if BP is stable.
[2018-07-06] MEDS: Insulin NovoLOG Aspart Correctional Sugar Inj SQ SCH ×4 (08:55→21:12)
[2018-07-06] MEDS: hydroCHLOROthiazide 25 MG Tablet PO SCH (08:55)
[2018-07-07] MEDS: Insulin NovoLOG Aspart Correctional Sugar Inj SQ SCH (08:08)
[2018-07-07] MEDS: hydroCHLOROthiazide 25 MG Tablet PO SCH (08:09)
--- NOTE | 2018-07-07 09:07 | P.PNIM ---
Subjective Interval history: Patient says he is feeling well. Feels like going home. Denies any chest pain or shortness of breath. Physical Exam Vital signs: Vital Signs 07/06/18 09:30 07/06/18 10:00 07/06/18 10:30 Temperature Pulse Rate 87 87 78 Respiratory Rate 26 H 0 L Blood Pressure 177/94 H 180/91 H 145/81 H Pulse Oximetry 95 96 98 07/06/18 11:00 07/06/18 11:30 07/06/18 12:00 Temperature 98.3 F Pulse Rate 84 81 79 Respiratory Rate 16 16 Blood Pressure 156/85 H 171/100 H 154/90 H Pulse Oximetry 99 95 97 07/06/18 12:30 07/06/18 16:00 07/06/18 20:00 Temperature 98.4 F 98.2 F Pulse Rate 80 97 H 91 H Respiratory Rate 16 18 Blood Pressure 144/87 H 167/104 H 189/89 H Pulse Oximetry 100 96 95 07/06/18 21:43 07/07/18 00:00 07/07/18 04:00 Temperature 98.1 F 98.4 F Pulse Rate 79 85 Respiratory Rate 18 18 18 Blood Pressure 131/83 141/84 H Pulse Oximetry 98 96 07/07/18 08:00 Temperature 97.3 F L Pulse Rate 103 H Respiratory Rate 16 Blood Pressure 172/98 H Pulse Oximetry 99 Intake & Output 07/06/18 07/07/18 07/07/18 18:59 06:59 18:59 Intake Total 250 / 250 Output Total 350 / 350 Balance -100 / -100 Weight 87.5 kg Intake: Oral 250 / 250 Output: Urine 350 / 350 Other: # Voids 3 Date of Last Bowel Movement 07/04/18 Narrative: GENERAL: Patient sitting up in bed. Walking in room. Appears comfortable. Alert and oriented 4. SKIN: Warm and dry. HEAD: Normocephalic. EYES: No scleral icterus. No injection or drainage. NECK: Supple, trachea midline. No JVD. CARDIOVASCULAR: Regular rate and rhythm without murmurs, gallops, or rubs. RESPIRATORY: Breath sounds equal bilaterally. No accessory muscle use. GASTROINTESTINAL: Abdomen soft, non-tender, nondistended. MUSCULOSKELETAL: No cyanosis, or edema. BACK: Nontender without obvious deformity. No CVA tenderness. Results - Labs CBC & Chem 7: 09/07/18 05:12 07/05/18 05:44 Laboratory Results - last 24 hr 07/06/18 12:39 POC Glucose 132 H Assessment and Plan - Plan //Hypertensive urgency -off Cardene drip since yesterday. - continue procardia and Clonidine- metoprolol on hold for now. -continue HCTZ - monitor trends in bp and adjust treatments accordingly = 07/07. Blood pressure acceptable. Patient feeling well. Discharge home with adjusted medication regimen. //Type 2 Diabetes Mellitus - Holding home meds for now - - Accu-Cheks before meals and at bedtime with low-dose NovoLog sliding scale coverage - PRN Hypoglycemia protocol - Monitor trends and blood glucose readings and adjust treatments as indicated //history of CVA- continue Pradaxa and BP control. //Hypokalemia; replaced. //DVT prophylaxis; on Pradaxa Discharge Planning: Discharge home in good condition. Follow-up with primary care.
--- NOTE | 2018-07-07 09:10 | P.DS ---
Date of admission: 07/03/18 17:44 Primary care physician: UNKNOWN Brief History from admission: Mr. Acosta is a 57-year-old male with a history of CVA, diabetes mellitus, hyperlipidemia, hypertension, seizure disorder, and diverticulosis who was sent by his primary care physician Dr. Bell to the emergency room for evaluation of hypertensive urgency. He was found to have an initial blood pressure of 220/ 110 in the emergency room, was started on a Cardene drip, and admitted to [facility] service for medical management and evaluation. The patient is seen in the critical care unit with Cardene drip infusing. He denies any headaches, unilateral weakness, chest pain, palpitations shortness of breath, nausea, vomiting, diarrhea, fevers, chills. He states he was simply at the doctor for routine follow-up when they noted his elevated blood pressure and referred him to the emergency department. He reports having elevated blood pressure over the last year. He reports seeing Dr. Arias for chronic back pain which is treated with Roxicodone and "muscle relaxers" as an outpatient. I attempted to review his medications with him, but he is uncertain as to which medications he takes exactly. I have discussed with the bedside nurse and the medication reconciliation will be corrected in the morning. DS: Medications - Discharge Medications Prescriptions: clonidine HCl 0.1 mg PO BID 30 Days #60 tab dabigatran etexilate [Pradaxa] 75 mg PO DAILY 30 Days #30 cap hydrochlorothiazide 25 mg PO QAM 30 Days #30 tab metoprolol succinate 100 mg PO BID 30 Days #60 tab nifedipine 60 mg PO DAILY 30 Days #30 tab DS: Summary Hospital Course: Patient with systolic blood pressure of 220 on admission. This was managed in the ICU with Cardene drip, as well as addition of nifedipine 60 mg daily. Blood pressure improved, in the 130 systolic at time of discharge. Patient feeling well. He will need to follow with primary care doctor as outpatient. For problem based summary from most recent progress note, please see below. //Hypertensive urgency -off Cardene drip since yesterday. - continue procardia and Clonidine- metoprolol on hold for now. -continue HCTZ - monitor trends in bp and adjust treatments accordingly = 07/07. Blood pressure acceptable. Patient feeling well. Discharge home with adjusted medication regimen. //Type 2 Diabetes Mellitus - Holding home meds for now - - Accu-Cheks before meals and at bedtime with low-dose NovoLog sliding scale coverage - PRN Hypoglycemia protocol - Monitor trends and blood glucose readings and adjust treatments as indicated //history of CVA- continue Pradaxa and BP control. //Hypokalemia; replaced. //DVT prophylaxis; on Pradaxa Discharge Planning: Discharge home in good condition. Follow-up with primary care. - Time Spent with Patient Total time spent providing and/or coordinating discharge services: Less than 30 minutes - Quality: VTE Deep Vein Thrombosis/Pulmonary Embolism Present on Admission: No Exam Vital signs: Vital Signs 07/06/18 09:30 07/06/18 10:00 07/06/18 10:30 Temperature Pulse Rate 87 87 78 Respiratory Rate 26 H 0 L Blood Pressure 177/94 H 180/91 H 145/81 H Pulse Oximetry 95 96 98 07/06/18 11:00 07/06/18 11:30 07/06/18 12:00 Temperature 98.3 F Pulse Rate 84 81 79 Respiratory Rate 16 16 Blood Pressure 156/85 H 171/100 H 154/90 H Pulse Oximetry 99 95 97 07/06/18 12:30 07/06/18 16:00 07/06/18 20:00 Temperature 98.4 F 98.2 F Pulse Rate 80 97 H 91 H Respiratory Rate 16 18 Blood Pressure 144/87 H 167/104 H 189/89 H Pulse Oximetry 100 96 95 07/06/18 21:43 07/07/18 00:00 07/07/18 04:00 Temperature 98.1 F 98.4 F Pulse Rate 79 85 Respiratory Rate 18 18 18 Blood Pressure 131/83 141/84 H Pulse Oximetry 98 96 07/07/18 08:00 Temperature 97.3 F L Pulse Rate 103 H Respiratory Rate 16 Blood Pressure 172/98 H Pulse Oximetry 99 Intake & Output 07/06/18 07/07/18 07/07/18 18:59 06:59 18:59 Intake Total 250 / 250 Output Total 350 / 350 Balance -100 / -100 Weight 87.5 kg Intake: Oral 250 / 250 Output: Urine 350 / 350 Other: # Voids 3 Date of Last Bowel Movement 07/04/18 Results Procedures completed during hospitalization: No invasive procedures. Labs on day of discharge: Labs from last 24 hours 07/06/18 12:39 POC Glucose 132 H - Impressions ITS Impressions Chest X-Ray 07/03/18 14:52 CONCLUSION: Cardiomegaly. No acute pulmonary disease. Discharge Plan - Discharge Disposition Patient Disposition: 01 Discharge Home - Discharge Condition Condition: Good - Discharge Order Discharge Orders: Discharge Order (Routine); Ordered 07/07/18 Ordered By: Cruz Spence - Discharge Details Anticipated Discharge Date: 07/07/18 - Physicians Team Primary Care Provider: UNKNOWN, Attending Provider: Cruz Spence
== END 2018-07-07 10:10 | disposition home or self-care (01) ==
LOC: NEPC 13:45 → NEDA 17:44 → HIMC 22:45 → N04 07-06 14:08
PROVIDERS: ADMIT Internal Medicine; ATTEND Internal Medicine